=== PATIENT | male | born 1945 | race Two or more races ===

== ENCOUNTER 2021-10-29 01:19 | Emergency (ER) | payer OTHER ==
[~2021-10-29] VITALS: Ht 154.9 cm; Wt 54.4 kg
[2021-10-29] MEDS ORDERED: TOPROL XL25 M1 (01:34)
[2021-10-29] MEDS ORDERED: CHILDREN'S ASPI81 MG (01:34)
[2021-10-29] MEDS ORDERED: LOSARTAN POTASS25 MG (01:34)
[2021-10-29] MEDS ORDERED: VISTARIL50 MG PO (04:59)
[2021-10-29] MEDS ORDERED: ACETAMINOPHEN650 M2 PO (04:59)
[2021-10-29] MEDS ORDERED: NORFLEX100MG PO (04:59)
[2021-10-29] MEDS ORDERED: PEPCID AC20 MG PO (04:59)
== END 2021-10-29 05:11 | disposition home or self-care (01) ==
LOC: ER 01:19
DX: F41.9 Anxiety disorder, unspecified (principal); R25.1 Tremor, unspecified; R07.89 Other chest pain; I25.10 Atherosclerotic heart disease of native coronary artery without angina pectoris; I10 Essential (primary) hypertension; K29.70 Gastritis, unspecified, without bleeding